=== PATIENT | female | born 1985 | race Caucasian/White ===

== ENCOUNTER 2017-04-16 12:28 | Emergency (ER) | payer OTHER ==
--- NOTE | 2017-04-16 13:05 | UC ---
Throat Pain/Nasal [place] HPI - HPI Summary HPI Summary: nasal congestion and cough x 3 days , + sore throat, fever, chills - History of Current Complaint Chief Complaint: UCGeneralIllness Stated Complaint: SORE THROAT,COUGH Time Seen by Provider: 04/16/17 13:00 Hx Obtained From: Patient Hx Last Menstrual Period: 03/30/17 Onset/Duration: Gradual Onset, Lasting Days - 3, Still Present Severity: Moderate Cough: Nonproductive Associated Signs & Symptoms: Positive: Nasal Discharge, Fever. 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." Denies: Hypertension, Pacemaker/ICD, Myocardial Infarction, Congestive Heart Failure, Atrial Fibrillation, Deep Vein Thrombosis, Bleeding Disorders Respiratory History Of: Denies: COPD, Asthma, Bronchitis, Pneumonia, Pulmonary Embolism GI/ History Of: Denies: Gastroesophageal Reflux, Ulcer, Gastrointestinal Bleed, Gall Bladder Disease, Kidney Stones, Diverticulitis, Renal Disease, Urosepsis Neurological History Of: Denies: TIA, CVA, Dementia, Seizures, Migraine Psychological History Of: Reports: Anxiety Cancer History Of: Denies: Lung Cancer, Colorectal Cancer, Breast Cancer, Prostate Cancer, Cervical Cancer Other History Of: Negative For: HIV, Hepatitis C - Surgical History Surgical History: Yes Surgery Procedure, Year, and Place: csection 11/07 - Family History Known Family History: Positive: Unknown, Cardiac Disease - Social History Alcohol Use: None Substance Use Type: None Smoking Status (MU): Never Smoked Tobacco - Immunization History Most Recent Influenza Vaccination: unknown Review of Systems Constitutional: Fever, Chills, Fatigue Skin: Negative ENT: Sore Throat, Nasal Discharge Respiratory: Cough Cardiovascular: Negative Gastrointestinal: Negative All Other Systems Reviewed And Are Negative: Yes Physical Exam Triage Information Reviewed: Yes Appearance: Well-Appearing, No Pain Distress, Well-Nourished Vital Signs: Initial Vital Signs Temp 98.0 F 04/16/17 12:51 Pulse 88 04/16/17 12:51 Resp 16 05/16/17 12:51 BP 136/80 04/16/17 12:51 Pulse Ox 100 04/16/17 12:51 Vital Signs Reviewed: Yes Eyes: Positive: Conjunctiva Clear ENT: Positive: Normal ENT inspection, Hearing grossly normal, Pharyngeal erythema, Nasal congestion, Nasal drainage, TMs normal Neck exam: Normal Neck: Positive: Supple, Nontender, No Lymphadenopathy Respiratory: Positive: Chest non-tender, Lungs clear, Normal breath sounds Cardiovascular: Positive: RRR, No Murmur, Pulses Normal Abdominal Exam: Normal Skin Exam: Normal Throat Pain/Nasal Course/Dx - Differential Dx/Diagnosis Provider Diagnoses: uri Discharge - Discharge Plan Condition: Stable Disposition: HOME Patient Education Materials: Upper Respiratory Infection (ED) Forms: *Work Release Referrals: No Primary Care Phys,NOPCP [Primary Care Provider] - If Needed
[2017-04-16 13:21] VITALS: BP 136/80
== END 2017-04-16 13:12 | disposition home or self-care (01) ==
LOC: UCCORT 12:28
DX: J06.9 Acute upper respiratory infection, unspecified (principal); R01.1 Cardiac murmur, unspecified; F41.9 Anxiety disorder, unspecified
CPT/HCPCS: 87651; 99211; G0463

== ENCOUNTER 2017-09-18 19:54 | Emergency (ER) | payer OTHER ==
[2017-09-18 21:08] VITALS: BP 139/86
[2017-09-18] MEDS ORDERED: Albuterol 2.5 MG/3 ML NEB.SOL* (0.083%) INH ONE (21:32)
[2017-09-18] MEDS ORDERED: Ipratropium 0.5MG/2.5ML NEB* 0.5 MG/2.5 ML NEB.SOLN INH ONE (21:32)
--- NOTE | 2017-09-18 21:32 | UC ---
Respiratory Complaint HPI - HPI Summary HPI Summary: 32 yo female with fever/cough and wheezing x 4-5 day no CP or SOB no n/v/d - History of Current Complaint Chief Complaint: UCRespiratory Stated Complaint: CHEST CONGESTION/COUGH Time Seen by Provider: 09/18/17 21:25 Hx Obtained From: Patient Hx Last Menstrual Period: 09/16/17 Onset/Duration: Gradual Onset, Lasting Days Timing: Constant Severity Initially: Mild Severity Currently: Moderate Pain Intensity: 2 Pain Scale Used: 0-10 Numeric Character: Cough: Productive Aggravating Factors: Exertion, Deep Breaths Alleviating Factors: Nothing Associated Signs And Symptoms: Positive: Fever, Chills, Wheezing Related History: Similar Episode/Dx as: - bronchitis - Allergies/Home Medications Allergies/Adverse Reactions: Allergies Allergy/AdvReac Type Severity Reaction Status Date / Time No Known Allergies Allergy Verified 09/18/17 21:02 Home Medications: Home Medications Vitamin D CAP* [Drisdol CAP*] 1 cap WEEKLY 09/18/17 [History Confirmed 09/18/17] PMH/Surg Hx/FS Hx/Imm Hx Previously Healthy: Yes Respiratory History: Bronchitis, Pneumonia Other History Of: Negative For: HIV, Hepatitis C - Surgical History Surgical History: Yes Surgery Procedure, Year, and Place: csection 11/07 - Family History Known Family History: Positive: Unknown, Cardiac Disease - Social History Alcohol Use: None Substance Use Type: None Smoking Status (MU): Never Smoked Tobacco - Immunization History Most Recent Influenza Vaccination: none 2016 Review of Systems Constitutional: Fever, Chills, Fatigue Skin: Negative Eyes: Negative ENT: Negative Respiratory: Cough Cardiovascular: Negative Gastrointestinal: Negative Genitourinary: Negative Motor: Negative Neurovascular: Negative Musculoskeletal: Negative Neurological: Negative Psychological: Negative Is Patient Immunocompromised?: No All Other Systems Reviewed And Are Negative: Yes Physical Exam Triage Information Reviewed: Yes Appearance: Well-Appearing, No Pain Distress, Well-Nourished Vital Signs: Initial Vital Signs Temp 97.3 F 09/18/17 21:03 Pulse 96 09/18/17 21:03 Resp 20 09/18/17 21:03 BP 139/86 09/18/17 21:03 Pulse Ox 100 09/18/17 21:03 Vital Signs Reviewed: Yes Eyes: Positive: Conjunctiva Clear ENT: Positive: Normal ENT inspection Neck exam: Normal Neck: Positive: Supple, Nontender, No Lymphadenopathy Respiratory: Positive: Lungs clear, Normal breath sounds, No respiratory distress Cardiovascular: Positive: RRR, No Murmur Musculoskeletal: Positive: ROM Intact, No Edema Neurological: Positive: Alert Psychological Exam: Normal Skin Exam: Normal UC Diagnostic Evaluation - Laboratory O2 Sat by Pulse Oximetry: 100 - normal/not hypoxic - Radiology Xray Interpretation: No Acute Changes Radiology Interpretation Completed By: ED Physician Re-Evaluation - Re-Evaluation First Eval Re-Evaluation Time: 22:05 Change: Improved Comment: no wheezing Respiratory Course/Dx - Differential Dx/Diagnosis Provider Diagnoses: acute bronchitis with bronchospasm Discharge - Discharge Plan Condition: Stable Disposition: HOME Prescriptions: Amoxicillin PO (*) [Amoxicillin 875 MG (*)] 875 mg PO BID #14 tab Prednisone [Deltasone] 40 mg PO DAILY #10 tab Patient Education Materials: Acute Bronchitis (ED), Bronchospasm (ED) Forms: *Work Release Referrals: NICOLAS Acosta [Primary Care Provider] - 5 Days (if not better) Additional Instructions: rest fluids recheck for worsening symptoms
[2017-09-18] MEDS ORDERED: Albuterol HFA INHALER* 8 gm MDI INH ONE (22:05)
[2017-09-18] MEDS ORDERED: Amoxicillin PO (*) 250 MG CAP PO ONE (22:06)
[2017-09-18] MEDS ORDERED: predniSONE TAB* 20 MG PO ONE (22:06)
[2017-09-18] MEDS ORDERED: Amoxicillin PO (*) 500 MG CAP PO ONE (22:07)
--- NOTE | 2017-09-18 22:10 | RAD ---
Indication: Fever, cough. 2 views of the chest including dual energy PA views demonstrate no mediastinal shift. Heart is normal size and configuration. Lung mckenna are clear. No changes noted since January 27, 2014. IMPRESSION: No active cardiopulmonary disease is noted.
== END 2017-09-18 22:20 | disposition home or self-care (01) ==
LOC: UCCORT 19:54
DX: J20.9 Acute bronchitis, unspecified (principal)
CPT/HCPCS: 71020; 99213; A9270-GY; G0463; J7512; J7644

== ENCOUNTER 2017-11-07 11:34 | Emergency (ER) | payer OTHER ==
[2017-11-07 12:49] VITALS: BP 155/79
--- NOTE | 2017-11-07 12:59 | UC ---
[facility] HPI - HPI Summary HPI Summary: 32 year female with lip complaint . pt bit bottom lip a few days ago. now is very painful, swelling and pain down left side of mouth. pt states area is draining and has a very foul taste. febrile last night. [ End ] - History of Current Complaint Chief Complaint: UCSkin Stated Complaint: ORAL COMPLAINT Time Seen by Provider: 11/07/17 12:53 Hx Obtained From: Patient Hx Last Menstrual Period: 10/17/17 ?: No Onset/Duration: Sudden Onset, Still Present Severity: Moderate - Allergies/Home Medications Allergies/Adverse Reactions: Allergies Allergy/AdvReac Type Severity Reaction Status Date / Time No Known Allergies Allergy Verified 11/07/17 12:49 Home Medications: Home Medications Multiple Vitamins W/ Minerals [Multivitamin Adult] 11/07/17 [History] PMH/Surg Hx/FS Hx/Imm Hx Previously Healthy: Yes Endocrine History: Other Other Endocrine History: left groin lymph node enarlged and had recent bx Other History Of: Negative For: HIV, Hepatitis C - Surgical History Surgical History: Yes Surgery Procedure, Year, and Place: csection 11/07, L groin lymph node removed - Family History Known Family History: Positive: Unknown, Cardiac Disease - Social History Occupation: Employed Full-time Alcohol Use: None Substance Use Type: None Smoking Status (MU): Never Smoked Tobacco - Immunization History Most Recent Influenza Vaccination: none 2016 Review of Systems Constitutional: Fever, Chills ENT: Other - lip pain All Other Systems Reviewed And Are Negative: Yes Physical Exam Triage Information Reviewed: Yes Appearance: Well-Appearing, Well-Nourished, Pain Distress - mild Vital Signs: Initial Vital Signs Temp 97.9 F 11/07/17 12:44 Pulse 69 11/07/17 12:44 Resp 18 11/07/17 12:44 BP 155/79 11/07/17 12:44 Pulse Ox 100 11/07/17 12:44 Vital Signs Reviewed: Yes Eye Exam: Normal ENT Exam: Normal Dental: Positive: Other: - left lower lip with round ulceration 3x3 mm and swelling of the lower lip on both sides and tender to palpation. no submandibular lymph node concerns or enarlgement. no anterior cervical lymphadenopathy.. Negative: Percussion Tenderness @, Gross Decay/Caries @, Dental Fracture @ Neck: Positive: Supple, Nontender, No Lymphadenopathy Respiratory Exam: Normal Cardiovascular Exam: Normal Musculoskeletal Exam: Normal Neurological Exam: Normal Psychological Exam: Normal Skin Exam: Normal Dental Complaint Course/Dx - Course Course Of Treatment: with the recent worsened swelling and ? febile concerns ( she has no way to check temp at home) will treat at this time , she is aware of SE, will start probiotics, RTO if any concerns and call dentist , blanele senia water as well - Differential Dx/Diagnosis Differential Diagnosis/Dx: Dental Caries, Gingivitis, Odontogenic Pain, Peridontic Disease, Peritonsillar Abcess, Tonsillitis Provider Diagnoses: left lower lip abscess / inflammation Discharge - Discharge Plan Condition: Good Disposition: HOME Prescriptions: Amoxicillin PO (*) [Amoxicillin 500 MG CAP*] 500 mg PO TID #30 cap Patient Education Materials: Dental Abscess (ED) Forms: *Work Release Referrals: NICOLAS Acosta [Primary Care Provider] - 4 Days Additional Instructions: For the concern for infection in the mouth you will please start amoxicillin and follow up with our dentist if there are any concerns
== END 2017-11-07 13:23 | disposition home or self-care (01) ==
LOC: UCCORT 11:34
DX: K13.0 Diseases of lips (principal)
CPT/HCPCS: 99212; G0463

== ENCOUNTER 2017-12-04 10:08 | Emergency (ER) | payer OTHER ==
[2017-12-04 11:52] VITALS: BP 141/88
--- NOTE | 2017-12-04 12:20 | UC ---
Respiratory Complaint HPI - HPI Summary HPI Summary: Cough, congestion, ear pain worsening over the past few days - History of Current Complaint Chief Complaint: UCGeneralIllness Stated Complaint: CONGESTION,SORE THROAT,EARS Time Seen by Provider: 12/04/17 11:42 Hx Obtained From: Patient Hx Last Menstrual Period: ~11/13/17 ?: No Onset/Duration: Sudden Onset, Lasting Days, Still Present Timing: Constant Severity Initially: Mild Severity Currently: Moderate Character: Cough: Nonproductive Alleviating Factors: Nothing Associated Signs And Symptoms: Positive: Chills, Pleuritic Chest Pain, URI - Allergies/Home Medications Allergies/Adverse Reactions: Allergies Allergy/AdvReac Type Severity Reaction Status Date / Time No Known Allergies Allergy Verified 12/04/17 11:48 Home Medications: Home Medications Acetaminophen ADULT LIQ* [Tylenol ADULT LIQ*] 30 ml PO Q4H PRN 12/04/17 [ History Confirmed 12/04/17] PMH/Surg Hx/FS Hx/Imm Hx Previously Healthy: Yes Other History Of: Negative For: HIV, Hepatitis C - Surgical History Surgical History: Yes Surgery Procedure, Year, and Place: csection 11/07, L groin lymph node removed - Family History Known Family History: Positive: Unknown, Cardiac Disease - Social History Occupation: Employed Full-time Lives: With Family Alcohol Use: None Substance Use Type: None Smoking Status (MU): Never Smoked Tobacco - Immunization History Most Recent Influenza Vaccination: Not the Season Review of Systems Constitutional: Fever, Chills, Fatigue Skin: Negative Eyes: Negative ENT: Ear Ache, Nasal Discharge Respiratory: Cough Cardiovascular: Negative Gastrointestinal: Negative Genitourinary: Negative Motor: Negative Neurovascular: Negative Musculoskeletal: Negative Neurological: Negative Psychological: Negative Is Patient Immunocompromised?: No All Other Systems Reviewed And Are Negative: Yes Physical Exam Triage Information Reviewed: Yes Appearance: Well-Appearing, No Pain Distress, Well-Nourished Vital Signs: Initial Vital Signs Temp 98.2 F 12/04/17 11:47 Pulse 90 12/04/17 11:47 Resp 16 12/04/17 11:47 BP 141/88 12/04/17 11:47 Pulse Ox 99 12/04/17 11:47 Vital Signs Reviewed: Yes Eye Exam: Normal Eyes: Positive: Conjunctiva Clear ENT Exam: Normal ENT: Positive: Normal ENT inspection, Hearing grossly normal, Pharynx normal, Nasal congestion, Nasal drainage, TM dull, Uvula midline. Negative: Tonsillar swelling, Tonsillar exudate, Trismus, Muffled voice, Hoarse voice, Dental tenderness, Sinus tenderness Dental Exam: Normal Neck exam: Normal Neck: Positive: Supple, Nontender, No Lymphadenopathy Respiratory Exam: Normal Respiratory: Positive: Chest non-tender, Lungs clear, Normal breath sounds, No respiratory distress, No accessory muscle use Cardiovascular Exam: Normal Cardiovascular: Positive: RRR, No Murmur, Pulses Normal, Brisk Capillary Refill Musculoskeletal Exam: Normal Musculoskeletal: Positive: Strength Intact, ROM Intact, No Edema Neurological Exam: Normal Neurological: Positive: Alert, Muscle Tone Normal Psychological Exam: Normal Skin Exam: Normal UC Diagnostic Evaluation - Laboratory O2 Sat by Pulse Oximetry: 99 Respiratory Course/Dx - Course Course Of Treatment: albuterol MDI (for Bronchial cough) Mucinex (loosen secretions) Zithromax, increase fluids, rest follow with pcp prn - Differential Dx/Diagnosis Provider Diagnoses: acute Bronchitis, elevated blood pressure with out dx of hypertension Discharge - Discharge Plan Condition: Stable Disposition: HOME Prescriptions: Albuterol HFA INHALER* [Ventolin HFA Inhaler*] 2 puff INH Q6H PRN #1 mdi PRN Reason: cough/chest congestion Azithromycin TAB* [Zithromax TAB (Z-CHRIS) 250 mg #6 tabs] 2 tab PO .TODAY, THEN 1 DAILY #1 chris Patient Education Materials: Guaifenesin (By mouth), Acute Bronchitis (ED), Hypertension (ED) Forms: *Work Release Referrals: NICOLAS Acosta [Primary Care Provider] - 1 Week
== END 2017-12-04 12:35 | disposition home or self-care (01) ==
LOC: UCCORT 10:08
DX: J20.9 Acute bronchitis, unspecified (principal); R03.0 Elevated blood-pressure reading, without diagnosis of hypertension
CPT/HCPCS: 87502; 99212; G0463

== ENCOUNTER 2018-02-17 13:03 | Emergency (ER) | payer OTHER ==
[2018-02-17 14:23] VITALS: BP 143/75
[2018-02-17] MEDS ORDERED: Ondansetron ODT TAB* 4 MG PO ONE (14:24)
--- NOTE | 2018-02-17 15:06 | ED ---
Abdominal Pain/Female - HPI Summary HPI Summary: 32 yr old female with the onset of NV 430-500 am today, and some scant diarrhea. She has pain in the RUQ, epigastric and upper back area as well. She is in extreme nausea and vomiting cycle and history difficult to obtain. After getting her to stop vomiting with Zofran she relays that the pain is the worst feature of her symptoms and it is moderate to severe in her upper abdomen , and back. - History of Current Complaint Chief Complaint: UCGI Stated Complaint: ACHY,VOMITING Time Seen by Provider: 02/17/18 14:23 Hx Last Menstrual Period: 02/17/18 Pain Intensity: 8 Allergies/Adverse Reactions: Allergies Allergy/AdvReac Type Severity Reaction Status Date / Time No Known Allergies Allergy Verified 02/17/18 14:18 Home Medications: Home Medications NK [No Home Medications Reported] 02/17/18 [History Confirmed 02/17/18] PMH/Surg Hx/FS Hx/Imm Hx Endocrine/Hematology History: Denies: Hx Diabetes, Hx Thyroid Disease Cardiovascular History: Denies: Hx Congestive Heart Failure, Hx Deep Vein Thrombosis, Hx Hypertension , Hx Myocardial Infarction, Hx Pacemaker/ICD Respiratory History: Denies: Hx Asthma, Hx Chronic Obstructive Pulmonary Disease (COPD), Hx Lung Cancer, Hx Pneumonia, Hx Pulmonary Embolism GI History: Denies: Hx Gall Bladder Disease, Hx Gastrointestinal Bleed, Hx Ulcer, Hx Urosepsis History: Denies: Hx Kidney Stones, Hx Renal Disease Neurological History: Denies: Hx Dementia, Hx Migraine, Hx Seizures, Hx Transient Ischemic Attacks (TIA) Psychiatric History: Reports: Hx Anxiety - Surgical History Surgery Procedure, Year, and Place: csection 11/07, L groin lymph node removed Infectious Disease History: No Infectious Disease History: Denies: History Other Infectious Disease, Traveled Outside the [place] in Last 30 Days - Family History Known Family History: Positive: Unknown, Cardiac Disease - Social History Alcohol Use: None Substance Use Type: Reports: None Smoking Status (MU): Never Smoked Tobacco Review of Systems Positive: Abdominal Pain, Vomiting, Diarrhea, Nausea All Other Systems Reviewed And Are Negative: Yes Physical Exam Triage Information Reviewed: Yes Vital Signs On Initial Exam: Initial Vitals Temp Pulse BP Pulse Ox 97.3 F 117 143/75 98 02/17/18 14:19 02/17/18 14:19 02/17/18 14:19 02/17/18 14:19 Vital Signs Reviewed: Yes Appearance: Positive: Well-Appearing, No Pain Distress Skin: Positive: Warm, Skin Color Reflects Adequate Perfusion Head/Face: Positive: Normal Head/Face Inspection Eyes: Positive: EOMI ENT: Positive: Pharynx normal, TMs normal Neck: Positive: Nontender Respiratory/Lung Sounds: Positive: Clear to Auscultation, Breath Sounds Present Cardiovascular: Positive: RRR. Negative: Murmur Abdomen Description: Positive: Other: - tender RUQ/Epigastrium. Negative: CVA Tenderness (R), CVA Tenderness (L) Musculoskeletal: Positive: Strength/ROM Intact Neurological: Positive: Sensory/Motor Intact, Alert, Oriented to Person Place, Time, CN Intact II-III Psychiatric: Positive: Normal - Amada Coma Scale Best Eye Response: 4 - Spontaneous Best Motor Response: 6 - Obeys Commands Best Verbal Response: 5 - Oriented Coma Scale Total: 15 Diagnostics - Vital Signs Vital Signs Temp Pulse BP Pulse Ox 02/17/18 14:19 97.3 F 117 143/75 98 - Laboratory Lab Statement: Any lab studies that have been ordered have been reviewed, and results considered in the medical decision making process. Abdominal Pain Fem Course/Dx - Course Course Of Treatment: 32 yr old female who is no longer vomiting, but has pain in abdomen. She refuses ALS transport, IV, IV pain meds and signed out AMA. Her mom is driving her to the ER. - Diagnoses Provider Diagnoses: Abdominal pain, Epigastric abdominal pain Discharge - Discharge Plan Condition: Good Disposition: AGAINST MEDICAL ADVICE Referrals: NICOLAS Acosta [Primary Care Provider] -
== END 2018-02-17 15:04 | disposition left against medical advice (07) ==
LOC: UCCORT 13:03
DX: R10.11 Right upper quadrant pain (principal); R10.13 Epigastric pain
CPT/HCPCS: 99212; A9270-GY; G0463

== ENCOUNTER 2018-05-01 10:30 | Emergency (ER) | payer OTHER ==
[2018-05-01 10:58] VITALS: BP 139/84
--- NOTE | 2018-05-01 12:37 | UC ---
Skin Complaint HPI - HPI Summary HPI Summary: has 2 raised skin tags in her scalp. For the past 2 days, has had very brief, sharp shooting pains which seem associated with the these lesions. Very brief sensation, occurs up to 5 x per hour, no associated headache, vision change, dizziness. No analgesics used. - History of Current Complaint Chief Complaint: UCSkin Time Seen by Provider: 05/01/18 12:14 Stated Complaint: SHOOTING PAINS IN HEAD Hx Obtained From: Patient Hx Last Menstrual Period: 02/17/18 ?: No Onset/Duration: Gradual Onset, Lasting Days - 2 Timing: Intermittent Episodes Lasting: - seconds Onset Severity: Mild Current Severity: Moderate Pain Intensity: 0 Location: Discrete - right side of scalp, from frontal area to vertex. Aggravating Factor(s): Nothing Alleviating Factor(s): Nothing Associated Signs & Symptoms: Positive: Negative - Allergy/Home Medications Allergies/Adverse Reactions: Allergies Allergy/AdvReac Type Severity Reaction Status Date / Time No Known Allergies Allergy Verified 05/01/18 10:47 Review of Systems Constitutional: Negative Skin: Other - recent breast biopsy done, benign; tags on scalp. Eyes: Negative ENT: Negative Respiratory: Negative Cardiovascular: Negative Gastrointestinal: Negative Genitourinary: Negative Motor: Negative Neurovascular: Negative Musculoskeletal: Negative Neurological: Negative Psychological: Negative Is Patient Immunocompromised?: No All Other Systems Reviewed And Are Negative: Yes PMH/Surg Hx/FS Hx/Imm Hx Previously Healthy: Yes Other History Of: Negative For: HIV, Hepatitis C - Surgical History Surgical History: Yes Surgery Procedure, Year, and Place: csection 11/07, L groin lymph node removed; benign right breast bx 02/16 - Family History Known Family History: Positive: Cardiac Disease - father has CHF, Diabetes - father - Social History Occupation: Employed Full-time, Student - SW student at [id number] Lives: With Family Alcohol Use: None Substance Use Type: None Smoking Status (MU): Never Smoked Tobacco - Immunization History Most Recent Influenza Vaccination: Not the Season Physical Exam Triage Information Reviewed: Yes Appearance: Well-Appearing, No Pain Distress, Well-Nourished Vital Signs: Initial Vital Signs Temp 98.0 F 05/01/18 10:41 Pulse 78 05/01/18 10:41 Resp 14 05/01/18 10:41 BP 139/84 05/01/18 10:41 Pulse Ox 100 05/31/18 10:41 Eye Exam: Normal ENT: Positive: Pharynx normal Dental Exam: Normal Neck: Positive: Supple, Nontender, No Lymphadenopathy Respiratory: Positive: Lungs clear, Normal breath sounds Cardiovascular: Positive: RRR, No Murmur Psychological Exam: Other - mildly anxious in manner Skin: Positive: significant lesion(s) - right vertex with 5 mm raised skin tag, flesh tones; right frontal area with 1 cm raised skin tag. No associated tenderness, swelling discharge. Course/Dx - Course Course Of Treatment: reassured that appearance of skin tags is benign; suspect neuralgia type pain. Observe and follow up with PMD - Differential Diagnoses - Skin Complaint Differential Diagnoses: Cellulitis, Viral Exanthem, Other - zoster - Diagnoses Provider Diagnoses: skin tags; scalp pain NYD Discharge - Sign-Out/Discharge Documenting (check all that apply): Discharge/Admit/Transfer - Discharge Plan Condition: Stable Disposition: HOME Patient Education Materials: Paresthesia (ED) Referrals: NICOLAS Acosta [Primary Care Provider] - Additional Instructions: You have 2 benign appearing skin tags. The pain seems closest to a neuralgia, or nerve pain. You might use ibuprofen 600mg twice daily and observe for progression. I suspect that it will resolve over the next 1-2 days. - Billing Disposition and Condition Condition: STABLE Disposition: HOME
== END 2018-05-01 12:52 | disposition home or self-care (01) ==
LOC: UCCORT 10:30
DX: L91.8 Other hypertrophic disorders of the skin (principal); R51 Headache
CPT/HCPCS: 99211; G0463

== ENCOUNTER 2019-12-18 07:54 | Day surgery (SDC) | payer OTHER ==
[~2019-12-18 07:54] MED LIST: Buffered Lidocaine 1% SYRIN* 1 ML/SYRINGE INTRADERM ONE; Dexamethasone TAB* 4 MG PO ONE; Famotidine IV* 10 MG/ML 2 ML (20 mg) IV ONE; Lactated Ringers 1000 ML Bag* 1,000 ML IV SCH; Ondansetron ODT TAB* 4 MG PO ONE
[2019-12-18] MEDS ORDERED: Dexamethasone IV* 4 MG/ML 1 ML (4 MG) ONE (08:25)
[2019-12-18] MEDS ORDERED: Ondansetron ODT TAB* 4 MG ONE (08:25)
[2019-12-18] MEDS ORDERED: Famotidine IV* 10 MG/ML 2 ML (20 mg) ONE (08:25)
--- NOTE | 2019-12-18 08:47 | PN ---
Progress Note - Progress Note Date of Service: 12/18/19 Note: Surgery Asked by Dr. Nieto to take over care of Ms. Smith. I have reviewed chart, met with, and examined Ms. Smith and I agree that she would benefit from excision of right breast lump. I described to her the nature of the procedure, its risks , benefits, and alternatives. She understands and agrees to proceed. I marked the lump in the right breast. Juaquin
[2019-12-18] MEDS ORDERED: Midazolam* 1 MG/ML 5 ML VIAL (5 MG) ONE (09:51)
[2019-12-18] MEDS ORDERED: Lidocaine 1% INJ* 10 MG/ML 30 ML SDV ONE (09:52)
[2019-12-18] MEDS ORDERED: Bupivacaine 0.25% EPI 200,000* 30 ML SDV ONE (09:53)
[2019-12-18] MEDS ORDERED: Bupivacaine 0.5%* 50 ML MDV VIAL ONE (09:53)
[2019-12-18] MEDS ORDERED: fentaNYL* 50 MCG/ML 2 ML VIAL (100 MCG VIAL) ONE (10:11)
[2019-12-18] MEDS ORDERED: Propofol* 10 MG/ML 20 ML BTL ONE ×2 (10:18→10:38)
[2019-12-18] MEDS ORDERED: Ketorolac INJ* 30 MG/ML 1 ML VIAL ONE (10:18)
[2019-12-18] MEDS ORDERED: DiMENhydriNATE IV* 50 MG/ML VIAL ONE (10:18)
[2019-12-18] MEDS ORDERED: KETAMINE HCL* 50 MG/ML 10 ML VIAL ONE (10:19)
[2019-12-18] MEDS ORDERED: Glycopyrrolate IV* 0.2 MG/ML 1 ML VIAL ONE (10:20)
[2019-12-18] MEDS ORDERED: Acetaminophen TAB* 325 MG PO PRN (11:06)
[2019-12-18] MEDS ORDERED: Naloxone* 0.4 MG/ML 1 ML VIAL IV PRN (11:06)
[2019-12-18] MEDS ORDERED: DiMENhydriNATE IV* 50 MG/ML VIAL IV PUSH PRN (11:06)
--- NOTE | 2019-12-18 11:33 | BRIEFOPN ---
Brief Operative/Procedure Note - Operation Details Pre-Op Diagnosis: Right breast lump Post-Op Diagnosis: same Procedures: excision right breast lump Surgeon(s)/Proceduralists: Surgeon: Lamberto. Asst: JOSE Esquivel Anesthesia: local-MAC Estimated Blood Loss: 5cc Findings: see dictation Specimen(s)/Culture(s) Description: right breast lump Complications: none
[2019-12-18 12:05] VITALS: BP 119/83
--- NOTE | 2019-12-18 20:43 | OP ---
CC: Page Damon PA-C * DATE OF OPERATION: 12/18/19 - [facility] DATE OF : 85 SURGEON: Meera Orantes MD THIOKOL OPERATOR: ILIANA Esquivel student. PRE-OP DIAGNOSIS: Right breast lump. POST-OP DIAGNOSIS: Right breast lump. OPERATIVE PROCEDURE: Excision of right breast lump. INDICATIONS: Ms. Smith is a 34-year-old woman with a right breast lump that has been followed and found to be enlarging, prompting the plan for surgical intervention. DESCRIPTION OF THE PROCEDURE: She was brought to the operating room, placed on the OR table in supine position and given IV sedation. The right breast was prepped and draped in usual sterile fashion. After infiltrating with local anesthetic, a curvilinear incision was made over the mass and subcutaneous tissue was divided with electrocautery down to the level of the mass. This was grasped and excised using the combination of sharp and electrocautery dissection. Once it was out, it was handed off as a specimen. Hemostasis was achieved with a combination of electrocautery and suture ligature. Once this appeared adequate, the wound was copiously irrigated with saline and then additional local was instilled into the wound and closure was accomplished. This was done with 3-0 Vicryl on the subcutaneous layer and the skin was closed with 4-0 Prolene in a subcuticular fashion. A Steri-Strips and a dry sterile dressings were applied. All sponge and instrument counts were correct. The patient tolerated the procedure well and was transferred to Recovery in a stable condition. [id number]/[facility] #: [id number] MTDD
== END 2019-12-18 12:48 | disposition home or self-care (01) ==
LOC: OR 07:54
PROVIDERS: ATTEND Surgery
DX: D24.1 Benign neoplasm of right breast (principal); I10 Essential (primary) hypertension; F41.9 Anxiety disorder, unspecified; K21.9 Gastro-esophageal reflux disease without esophagitis; K58.9 Irritable bowel syndrome, unspecified; Z87.891 Personal history of nicotine dependence; Z80.3 Family history of malignant neoplasm of breast
CPT/HCPCS: 81025; 88307; A9270-GY; J1100; J1240; J1885; J2250; J2704; J3010; J3490